=== PATIENT | female | born 1960 | race Two or more races ===

== ENCOUNTER 2016-06-22 17:37 | Emergency (ER) | payer OTHER ==
--- NOTE | 2016-06-22 18:18 | RAD ---
Exam: Two-view chest COMPARISON: None INDICATION: Cough. FINDINGS: PA and lateral views of the chest were obtained. Cardiac silhouette is within normal limits. Lungs are well-inflated. There is no focal airspace disease or pleural effusion. Bones of the chest wall within normal limits. IMPRESSION: No acute pulmonary process.
== END 2016-06-22 18:36 | disposition home or self-care (01) ==
LOC: ED 17:37
DX: R05 Cough (principal)